=== PATIENT | female | born 1990 | race Two or more races ===

== ENCOUNTER 2019-07-01 12:18 | Outpatient (CLI) | payer MEDICAID, OTHER ==
[~2019-07-01 12:18] MED LIST: NO HOME MEDS
[2019-07-01 12:49] LABS: BASOPHILS # (AUTO) 0.1 X10'3 (0-0.2); BASOPHILS % (AUTO) 0.8 % (0-1); EOSINOPHILS # (AUTO) 0.1 X10'3 (0-0.9); EOSINOPHILS % (AUTO) 1.6 % (0-6); HEMATOCRIT 40.6 % (35.0-45.0); HEMOGLOBIN 14.2 g/dl (12.0-16.0); LYMPHOCYTES # (AUTO) 3.3 X10'3 (1.1-4.8); LYMPHOCYTES % (AUTO) 47.8 % (21-51); MEAN CORPUSCULAR HEMOGLOBIN 31.7 PG (27.0-31.0); MEAN CORPUSCULAR VOLUME 90.7 FL (78-98); MEAN PLATELET VOLUME 8.7 FL (7.4-10.4); MONOCYTES # (AUTO) 0.4 X10'3 (0-0.9); MONOCYTES % (AUTO) 5.1 % (2-12); NEUTROPHILS # (AUTO) 3.1 X10'3 (1.8-7.7); NEUTROPHILS % (AUTO) 44.7 % (42-75); PLATELET COUNT 279 X10'3 (140-440); RED BLOOD COUNT 4.47 X10'6 (4.20-5.60); RED CELL DISTRIBUTION WIDTH 13.3 % (11.5-14.5); WHITE BLOOD COUNT 6.9 X10'3 (4.5-11.0)
== END 2019-07-01 23:59 | disposition home or self-care (01) ==
LOC: LAB 12:18
PROVIDERS: ATTEND Nurse Practitioner
DX: Z34.00 Encounter for supervision of normal first pregnancy, unspecified trimester (principal)
CPT/HCPCS: 36415; 84702; 85025

== ENCOUNTER 2025-01-01 22:28 | Emergency (ER) | payer MEDICAID ==
[~2025-01-01] VITALS: Ht 165.1 cm; Wt 92.3 kg
[2025-01-01 22:42] VITALS: BP 169/98; PULSE 74; RESP 16; TEMP 97.4; O2SAT 99
[2025-01-01 23:51] LABS: LEUKOCYTE ESTERASE ,URINE NEGATIVE (Neg); NITRITES, URINE NEGATIVE (Neg); OCCULT BLOOD,URINE NEGATIVE (Neg)
[2025-01-02 00:02] LABS: UA COLLECTION TYPE NON-SPECIFIED
--- NOTE | 2025-01-02 00:53 | Physician Documentation ---
History of Present Illness ~ Chief Complaint: Flank Pain Stated Complaint: ABD PAIN Time Seen by MD: 00:53 Primary Medical Doctor: none HPI Patient presents to the emergency room with bilateral back pain. Onset this past few days. She is concerned she may have a urinary tract infection. She reports being five weeks . No fevers. No discharge or bleeding. She has had nothing for the pain Medication Reconciliation Allergies: Coded Allergies: No Known Allergies (Unverified , 01/01/25) Miscellaneous Medications Home Med List (No Home Medications), (Reported) Past Medical History Past Medical History: No Pertinent History Past Surgical History: appendectomy Drug Use: none Lives In: Home Occupation: employed Review of Systems ROS All review of systems negative except as per HPI Physical Exam Vital Signs: Temperature: 97.4, Source: Temporal, Heart Rate: 74, Respiratory Rate: 16, BP: 169/98, Pulse Oximetry: 99, Weight: 92.300 Physical Exam General: Patient is awake, alert, oriented x4 in no acute distress and well appearing.~ Head: Normocephalic and atraumatic. Eyes: Conjunctival normal. EOMI. PERRL. ENT: Mucous membranes moist. Neck: Supple, trachea is midline. Chest: Clear to auscultation bilaterally without rales, rhonchi, or wheezes. There is no accessory muscle use or retractions. Cardiac: RRR without murmurs, gallops, or rubs. Abd: Soft, nondistended, nontender, with normoactive bowel sounds. No guarding, rebound, or rigidity. Back: No CVA tenderness or rash Progress Results/Orders Results/Orders Completed Orders - TODD GATICA MD Urinalysis, Cult If Indicated (01/01/25 22:48) Vital Signs 01/01/25 22:42 Temp 97.4 Pulse 74 Resp 16 B/P (MAP) 169/98 Pulse Ox 99 Laboratory Tests Test 01/01/25 22:54 Urine Specimen Description Non-specified Urine Color Straw Urine Clarity Clear Urine pH 6.0 Urine Specific [place] <=1.005 Urine Protein Negative Urine Glucose (UA) Negative Urine Ketones Negative Urine Occult Blood Negative Urine Nitrite Negative Urine Bilirubin Negative Urine Urobilinogen 0.2 Urine Leukocyte Esterase Negative Urine Culture Indicated Not ind Volume Urine Centrifuged 10 ml Urine Comment Medical Decision Making Additional information obtaine: N/A Findings Patient presents to the emergency room with back pain in the light of . Differentials include but are not limited to lumbago, pyelonephritis, aortic pathology, discomfort of . Urinalysis is negative. Symptoms are bilateral and he had not feel any imaging or additional labs is necessary. Likely discomfort of . The need to follow up with her doctor tejas reyes. She is declining prescription for vitamin Diff Dx GI Bleed:Consideration: Include: AE fistula, Angiodysplasia, Bleeding diathesis, Blood loss anemia, Carcinoma, Diverticulosis, Diverticulitis, Esophageal varicies, Esophagitis, Gastritis, Gastroenteritis, Inflammatory BD, Geir-Acuña syndrome, Meckel's diverticulum, PUD, Other Diff Dx Pain:Considerations: Include: AAA, -Complete, - Incomplete, -Inevitable, -Missed, -Threatened, Abruptio placentae, Angina/PA, Aortic dissection, Appendicitis, Bowel obstruction, Cholangitis, Cholecystitis, Cholelithasis, Constipation, Diverticular disease, Dysmenorrhea, Ectopic , Esophageal rupture, Esophagitis, Gastritis/PUD, Gastroenteritis, GI hemorrhage, Hernia, Hepatitis, Inflammatory BD, Ischemic bowel, Mass, Ovarian cyst/torsion, Pancreatitis, PID, Porphyria, Trauma, intraabdominal, Urinary obstruction, Urinary tract infection, Urolithiasis, Other Diff Dx N/V/D:Considerations: Include: Appendicitis, Bowel obstruction, Dehydration, DKA, Diarrhea - bacterial, Diarrhea - parasitic, Diarrhea - viral, Diverticulitis, Diverticulosis, Drug toxicity, Electrolyte imbalance, Food poisoning, Gastroenteritis, GE reflux, GI bleed, Hepatitis, Hernia, Hypovolemia, Hypotension, Inflammatory BD, Impaction, Malnutrition, Pancreatitis, , PUD, Renal failure, Urolithiasis, Urinary obstruction, UTI, Other Diff Dx Rectal:Considerations: Include: Fissure, Fistula, Foreign body, Impaction, Perirectal abscess, Rectal prolapse, Subcutaneous abscess, Thrombosed hemorrhoid, Ulcer, UTI, Other Departure Disposition: 01 HOME / SELF CARE / HOMELESS Impression: Primary Impression: Low back pain Condition: Stable Discharge Instructions: Back Pain in Referrals: NO PRIMARY CARE PROVIDER (PCP) Signature Scribe Signature: No scribe Attestation: The note accurately reflects work and decisions made by me.Todd Gatica MD 11/6/25 01:01 TODD GATICA MD Jan 02, 2025 00:53
== END 2025-01-02 01:32 | disposition home or self-care (01) ==
LOC: ER 22:29
DX: O26.891 Other specified pregnancy related conditions, first trimester (principal); M54.50 Low back pain, unspecified; M54.6 Pain in thoracic spine; Z90.49 Acquired absence of other specified parts of digestive tract; Z3A.01 Less than 8 weeks gestation of pregnancy
CPT/HCPCS: 81003; 99283